=== PATIENT | male | born 1985 | race Caucasian/White ===

== ENCOUNTER 2017-04-08 18:25 | Emergency (ER) | payer BC ==
[2017-04-08 18:54] VITALS: BP 139/91
--- NOTE | 2017-04-08 19:26 | UC ---
Respiratory Complaint HPI - HPI Summary HPI Summary: Cough Congestion and fatigue for 2 days, using MDI with some relief - History of Current Complaint Chief Complaint: UCRespiratory Stated Complaint: CHEST CONGESTION Time Seen by Provider: 04/08/17 18:40 Hx Obtained From: Patient Onset/Duration: Sudden Onset, Lasting Days - 3, Still Present Timing: Constant Severity Initially: Mild Severity Currently: Mild Character: Cough: Nonproductive Aggravating Factors: Deep Breaths, Recumbent Position Alleviating Factors: Bronchodilator Associated Signs And Symptoms: Positive: Pleuritic Chest Pain, URI, Nasal Congestion, Hoarseness, Sinus Discomfort - Allergies/Home Medications Allergies/Adverse Reactions: Allergies Allergy/AdvReac Type Severity Reaction Status Date / Time Cefaclor [From Ceclor] Allergy Unknown Unknown Verified 04/08/17 18:54 Reaction Details Erythromycin Allergy Unknown Unknown Verified 04/08/17 18:54 Reaction Details Sulfamethoxazole Allergy Unknown Unknown Verified 04/08/17 18:54 w/Trimethoprim Reaction [From Bactrim] Details PMH/Surg Hx/FS Hx/Imm Hx Previously Healthy: No Respiratory History: Asthma - Surgical History Surgical History: None - Family History Known Family History: Positive: None - Social History Occupation: Employed Full-time Lives: With Family Alcohol Use: None Substance Use Type: None Smoking Status (MU): Never Smoked Tobacco - Immunization History Most Recent Influenza Vaccination: no Review of Systems Constitutional: Chills, Fatigue Skin: Negative Eyes: Negative ENT: Negative Respiratory: Cough Cardiovascular: Negative Gastrointestinal: Negative Genitourinary: Negative Motor: Negative Neurovascular: Negative Musculoskeletal: Negative Neurological: Negative Psychological: Negative Is Patient Immunocompromised?: No All Other Systems Reviewed And Are Negative: Yes Physical Exam Triage Information Reviewed: Yes Appearance: Well-Appearing, No Pain Distress, Well-Nourished Vital Signs: Initial Vital Signs Temp 98.9 F 04/08/17 18:49 Pulse 82 04/08/17 18:49 Resp 18 04/08/17 18:49 BP 139/91 04/08/17 18:49 Pulse Ox 99 04/08/17 18:49 Vital Signs Reviewed: Yes Eye Exam: Normal Eyes: Positive: Conjunctiva Clear ENT Exam: Normal ENT: Positive: Normal ENT inspection, Hearing grossly normal, Pharynx normal, Nasal congestion, TMs normal, Uvula midline. Negative: Tonsillar swelling, Tonsillar exudate, Trismus, Muffled voice, Hoarse voice, Dental tenderness, Sinus tenderness Dental Exam: Normal Neck exam: Normal Neck: Positive: 1 Respiratory Exam: Normal Respiratory: Positive: Chest non-tender, No respiratory distress, No accessory muscle use Cardiovascular Exam: Normal Cardiovascular: Positive: RRR, Pulses Normal, Brisk Capillary Refill Musculoskeletal Exam: Normal Musculoskeletal: Positive: Strength Intact, ROM Intact, No Edema Neurological Exam: Normal Neurological: Positive: Alert, Muscle Tone Normal Psychological Exam: Normal Skin Exam: Normal UC Diagnostic Evaluation - Laboratory O2 Sat by Pulse Oximetry: 99 Diagnostic Studies Comment: Influenza A/B (-) Respiratory Course/Dx - Course Course Of Treatment: prednisone, albuterol increase fluids, mucinex add amoxicillin if worsens or fails to improve - Differential Dx/Diagnosis Provider Diagnoses: Acute exacerbation of mild intermittent asthma, Bronchitis Discharge - Discharge Plan Condition: Stable Disposition: HOME Prescriptions: Amoxicillin PO (*) [Amoxicillin 875 MG (*)] 875 mg PO BID #20 tab predniSONE TAB* [Deltasone TAB*] 40 mg PO DAILY 5 Days #10 tab Patient Education Materials: Guaifenesin (By mouth), Acute Bronchitis (ED), Bronchospasm (ED) Forms: *Work Release Referrals: Sheldon Palm MD [Primary Care Provider] - If Needed Additional Instructions: Ok to start antibiotic if symptoms fail to improve or worsen over the next several days
== END 2017-04-08 19:47 | disposition home or self-care (01) ==
LOC: UCCORT 18:25
DX: J45.901 Unspecified asthma with (acute) exacerbation (principal); Z88.1 Allergy status to other antibiotic agents; Z88.2 Allergy status to sulfonamides
CPT/HCPCS: 87502; 99212; G0463

== ENCOUNTER 2017-05-02 16:43 | Emergency (ER) | payer BC ==
[2017-05-02 19:07] VITALS: BP 136/72
--- NOTE | 2017-05-02 19:28 | UC ---
Respiratory Complaint HPI - HPI Summary HPI Summary: C/O worsening cough in the last 3 days with congestion. PND. Frontal sinus headache. Dry cough. Albuterol not helping. - History of Current Complaint Chief Complaint: UCRespiratory Stated Complaint: FEVER, CHILLS, FATIGUE Time Seen by Provider: 05/02/17 19:15 Hx Obtained From: Patient Onset/Duration: Gradual Onset, Lasting Weeks - 3, Worse Since - last Timing: Constant Pain Intensity: 6 Character: Cough: Nonproductive Associated Signs And Symptoms: Positive: Pleuritic Chest Pain - with cough, Wheezing, URI, Nasal Congestion, Sinus Discomfort Related History: Seasonal Allergies - Allergies/Home Medications Allergies/Adverse Reactions: Allergies Allergy/AdvReac Type Severity Reaction Status Date / Time Cefaclor [From Ceclor] Allergy Unknown Unknown Verified 05/02/17 19:07 Reaction Details Erythromycin Allergy Unknown Unknown Verified 05/02/17 19:07 Reaction Details Sulfamethoxazole Allergy Unknown Unknown Verified 05/02/17 19:07 w/Trimethoprim Reaction [From Bactrim] Details PMH/Surg Hx/FS Hx/Imm Hx Endocrine History: Hypothyroidism Cardiovascular History: Hypertension Respiratory History: Asthma - Surgical History Surgical History: None - Family History Known Family History: Positive: Diabetes Negative: Cardiac Disease, Hypertension - Social History Occupation: Employed Full-time Lives: With Family Alcohol Use: None Substance Use Type: None Smoking Status (MU): Never Smoked Tobacco - Immunization History Most Recent Influenza Vaccination: no Review of Systems Constitutional: Chills Skin: Rash Respiratory: Shortness Of Breath, Cough Cardiovascular: Chest Pain Is Patient Immunocompromised?: No All Other Systems Reviewed And Are Negative: Yes Physical Exam Triage Information Reviewed: Yes Appearance: No Pain Distress, Well-Nourished, Ill-Appearing Vital Signs: Initial Vital Signs Temp 99 F 05/02/17 19:03 Pulse 101 05/02/17 19:03 Resp 14 05/02/17 19:03 BP 136/72 05/02/17 19:03 Pulse Ox 97 05/02/17 19:03 Vital Signs Reviewed: Yes Eyes: Positive: Conjunctiva Clear ENT: Positive: Pharynx normal, TMs normal Neck exam: Normal Respiratory: Positive: Wheezing - mild expiratory Cardiovascular Exam: Normal Musculoskeletal Exam: Normal Neurological Exam: Normal Psychological Exam: Normal Skin Exam: Normal UC Diagnostic Evaluation - Laboratory O2 Sat by Pulse Oximetry: 97 Respiratory Course/Dx - Differential Dx/Diagnosis Differential Diagnosis/HQI/PQRI: Asthma, Lower Resp Infection, Sinusitis Provider Diagnoses: Acute URI. Acute sinusitis. Asthma with acute exacerbation. Discharge - Discharge Plan Condition: Stable Disposition: HOME Prescriptions: Amoxicillin PO (*) [Amoxicillin 875 MG (*)] 875 mg PO BID #20 tab predniSONE TAB* [Deltasone TAB*] 20 mg PO DAILY #18 tab Patient Education Materials: Sinusitis (ED), Amoxicillin (By mouth), Prednisone (By mouth) Referrals: Sheldon Palm MD [Primary Care Provider] -
[2017-05-02] MEDS ORDERED: Amoxicillin PO (*) 500 MG CAP PO ONE (19:46)
== END 2017-05-02 20:02 | disposition home or self-care (01) ==
LOC: UCCORT 16:43
DX: J06.9 Acute upper respiratory infection, unspecified (principal); J01.90 Acute sinusitis, unspecified; J45.901 Unspecified asthma with (acute) exacerbation; Z88.1 Allergy status to other antibiotic agents; Z88.2 Allergy status to sulfonamides; E03.9 Hypothyroidism, unspecified; I10 Essential (primary) hypertension
CPT/HCPCS: 99212; A9270-GY; G0463